=== PATIENT | female | born 1980 | race Caucasian/White ===

== ENCOUNTER 2023-06-10 17:19 | Emergency (ER) | payer OTHER, SELFPAY ==
--- NOTE | 2023-06-10 | ECG_ITS ---
Test Reason : CHEST PAIN Blood Pressure : / mmHG Vent. Rate : 080 BPM Atrial Rate : 080 BPM P-R Int : 164 ms QRS Dur : 074 ms QT Int : 386 ms P-R-T Axes : 051 007 047 degrees QTc Int : 445 ms Normal sinus rhythm Normal ECG When compared with ECG of 19-SEP-2019 16:17, No significant change was found Referred By: Generic ED Physician Electronically Signed By:JERI SCHULTZ MD
--- NOTE | ~2023-06-10 | CT_ITS ---
EXAMINATION: CT ANGIOGRAM OF THE CHEST WITH AND WITHOUT CONTRAST (CT PULMONARY ANGIOGRAM FOR PE) CLINICAL INFORMATION: Pain. COMPARISON: Chest x-ray from earlier the same day and chest CTA from 2013. TECHNIQUE: Prior to contrast administration, noncontrast localization images were obtained. Subsequently, multidetector volumetric imaging was performed from the thoracic inlet to below the diaphragms following the administration of 65 mL Omnipaque 350 intravenous contrast. No contrast reaction reported. Sagittal, coronal, and MIP oblique sagittal reformatted images were obtained on the CT workstation, uploaded to PACS, and reviewed. This CT examination was performed using dose optimization techniques as appropriate, variously including the following: *Automated exposure control. *Adjustment of mA and/or kV according to patient size (this includes techniques or standardized protocols for targeted exams where dose is matched to indication/reason for exam; i.e. extremities or head). *Use of iterative reconstruction technique. Total exam dose-length product 526 mGy-cm. FINDINGS: QUALITY OF STUDY/CONTRAST BOLUS: Satisfactory. PULMONARY ARTERIES: No pulmonary emboli. Prominent main pulmonary artery measuring 4 cm. Right and left pulmonary arteries do not appear enlarged. THORACIC AORTA: No aneurysm. Upper normal-size ascending thoracic aorta measuring 4 cm. Normal caliber aortic arch and descending thoracic aorta. No dissection. There is circumferential wall thickening of the distal aortic arch and proximal descending thoracic aorta questionable for vasculitis. LUNG: No focal consolidation, nodules or masses. PLEURA: No pleural effusion or pneumothorax. MEDIASTINUM: Normal heart size. No pericardial effusion. Shotty mediastinal lymphadenopathy. No enlarged hilar or mediastinal lymphadenopathy. No evidence of septal bowing or right heart strain. CORONARY ARTERY CALCIFICATION: None visualized on this study. CHEST WALL/AXILLA: No axillary or internal mammary lymphadenopathy. OSSEOUS STRUCTURES: No acute or suspicious osseous abnormality. UPPER ABDOMEN: Enlarged fatty liver. No reflux of contrast into the hepatic veins to suggest elevated right heart pressures. CT/CT angio chest PE protocol IMPRESSION: No evidence of pulmonary embolism. There is circumferential wall thickening of the distal aortic arch and proximal descending thoracic aorta. Findings are questionable for vasculitis. This is new from December 2013 exam. Shotty mediastinal lymphadenopathy. Upper normal-size ascending thoracic aorta. The aortic arch and descending thoracic aorta are normal in caliber. Slightly dilated main pulmonary artery. The right and left pulmonary arteries are normal in caliber. Is findings are similar to 2014 exam. VTE: Negative.
--- NOTE | ~2023-06-10 | XR_ITS ---
EXAMINATION: XR CHEST CLINICAL INFORMATION: Chest pain. COMPARISON: Most recent chest radiograph dated 09/19/2019. TECHNIQUE: 2 views of the chest were obtained. FINDINGS: The lungs are clear. The cardiomediastinal silhouette is normal in size. There is no pleural effusion or pneumothorax. No acute osseous abnormality. XR/XR chest 2V IMPRESSION: No acute cardiopulmonary findings.
--- NOTE | 2023-06-10 17:53 | PC.NURSE ---
Provider to bedside for primary eval.
[2023-06-10 17:54] VITALS: BP 128/62; BP 140/80; PULSE 93; PULSE 94; RESP 20; TEMP 36.8; O2SAT 98; O2SAT 99; BMI 51.2
--- NOTE | 2023-06-10 18:07 | ED_ITS ---
HPI - Chest Pain General Chief Complaint: Chest Pain Stated Complaint: 01/06 CHEST PAIN Time Seen by Provider: 06/10/23 17:47 Source: patient, RN notes reviewed and old records reviewed Mode of arrival: EMS Limitations: no limitations History of Present Illness HPI narrative: 42-year-old female presents for evaluation of chest pain. Patient reports that she had a sudden onset of midsternal chest pain about 45 minutes prior to arrival The pain radiates through straight to her back. She states the pain is worse if she pushes on her chest. She denies any numbness, tingling pain She endorses shortness of breath as well as nausea. She reports a history of GERD Denies any fevers, chills She endorses a history of anxiety Patient reports diarrhea starting 3 days ago Related Data Previous Rx's Medication Instructions Recorded tramadol 50 mg tablet 50 mg PO TID PRN severe pain 06/10/23 (scale score 7-10) #15 tabs Allergies Allergy/AdvReac Type Severity Reaction Status Date / Time latex [LATEX] Allergy Intermediate HIVES Unverified 12/15/19 14:52 fluoxetine [From PROZAC] Allergy Unknown UNK Unverified 12/15/19 14:52 Review of Systems 2 Constitutional: Constitutional: Denies body ache(s), Denies chills and Denies fever(s) Eyes: Eyes: Denies blurry vision ENT: Denies sore throat Cardiovascular: Cardiovascular: Reports chest pain, Reports chest pain at rest and Denies dyspnea Respiratory: Respiratory: Denies cough and Denies dyspnea Gastrointestinal: Gastrointestinal: Denies abdominal pain, Denies nausea and Denies vomiting Musculoskeletal: Musculoskeletal: Reports back pain Integumentary/Breasts: Skin/Breast: Denies rash PMFSH Past Medical History Medical History (Updated 06/10/23 @ 20:19 by Emily Hobbs) Panic disorder Anxiety Social History Social History Substance Use Type: Prescription Drugs Substance Use Frequency: Occasionally Any prior treatment program specific to substance use: No Advance Directives: No Advance Directives Information Provided: Yes Patient : No Physical Exam 2 Vital Signs: Vital Signs: Last Vital Signs Temp 98.6 F 06/10/23 19:43 Pulse 77 06/10/23 19:43 Resp 12 06/10/23 19:43 BP 130/48 L 06/10/23 19:43 Pulse Ox 98 06/10/23 19:43 O2 Del Method Room Air 06/10/23 19:43 BMI result Body Mass Index 51.2 Const: General: healthy appearing, comfortable, no acute distress, alert and awake Nutritional Appearance: well nourished Orientation/consciousness: p atient oriented x3 HEENT: Head: Yes normocephalic and Yes atraumatic Throat: Yes posterior oropharynx normal Eyes: Eyelids: Yes eyelids normal Conjunctivae: conjunctivae normal S clerae: sclerae normal Corneas: corneas normal Pupils: Equal, round and reactive pupils present EOM: EOMs intact bilaterally Chest: Other: Tender to palpation of the midsternal chest. No crepitus Resp: Effort & Inspection: normal respiratory effort, able to speak in complete sentences, no audible wheezes and not labored Auscultation: clear to auscultation bilaterally Cardio: Rate: regular rate Rhythm: regular rhythm GI: Inspection: No distended and Yes obesity Palpation (GI): Soft to palpation, not firm, nontender, no guarding and not rigid Skin: General skin exam: no rashes or lesions noted and elasticity normal Neuro: General: patient oriented x3 Cranial nerves: Yes Equal, round and reactive pupils present and Yes Bilaterally intact EOM present Cognition (Neuro): normal cognition Course Reevaluation(s) Reevaluation #1: CTA was ordered to rule out PE as the patient an elevated D-dimer. This was negative for PE study. Troponin negative x2. She does have some vasculitic changes to the aorta however no concerning abnormalities requiring admission. Discussed the patient will follow the PCP. Patient is requesting pain medication I initially recommended Toradol however she reports history of stomach issues, will treat with tramadol instead. Time: 22:11 Medications Administered Discontinued Medications Generic Name Dose Route Start Last Admin Trade Name Freq PRN Reason Stop Dose Admin Iohexol 65 ml 06/10/23 20:20 06/10/23 20:21 Iohexol 350 Mg/Ml 100 Ml Infus..Btl IV 06/10/23 20:21 65 ml ONCE ONE Administration Medical Decision Making Medical Decision Making MDM Narrative: 42-year-old female presents for evaluation chest pain. She has a history of GERD as well as severe anxiety. She endorses vaping but no history of COPD or asthma. Her pain is reproducible on exam. She was given aspirin a total of 324 mg prior to arrival as well as 1 nitro. These did not help her pain. Her EKG is normal sinus rhythm with a rate of [address] segment changes. No change when compared to September 19, 2019. Her initial troponin was undetectable, given that her symptoms started within 3 hours around we will draw a 3 hour troponin level for a delta. Her chest x-ray was clear, no evidence of infiltrate or pneumothorax. She has not tachycardic, tachypneic or hypoxic. She does state that her father has a ?clotting disorder that I have not been tested for. Will add on a D-dimer to rule out PE but she has no leg swelling either. Patient has a history of anemia and she is slightly anemic today with is microcytic. Apparently she has iron pills at home that she could be taking and was encouraged to do so. The patient is status post cholecystectomy, so biliary disease is less likely Differential Diagnosis Differential Diagnoses: The differential diagnosis associated with the presentation includes Chest pain Anxiety GERD Pancreatitis Pneumonia Bronchitis PE ACS Admission/Observation Consideration of admission/observation: Escalation of care including admission/observation considered Consider admission for sudden onset midsternal chest pain Lab Data MDM Lab Attestation statement: I reviewed the patient's lab results. See above, no leukocytosis, microcytic anemia. Normal platelet count. No electrolyte abnormalities 06/10/23 18:32 06/10/23 18:32 Labs: Lab Results 06/10/23 06/10/23 06/10/23 Range/Units 18:32 18:33 19:47 WBC 6.5 (4.8-10.8) X10*3/uL RBC 3.97 L (4.20-5.50) X10*6/uL Hgb 10.1 L (12.0-16.0) g/dl Hct 30.4 L (37.0-47.0) % MCV 76.6 L (80.0-98.0) fL MCH 25.4 L (27.0-33.0) pg MCHC 33.2 (31.0-35.0) g/dl RDW 15.0 (11.0-16.0) % Plt Count 210 (160-400) X10*3/uL MPV 8.1 L (9.4-12.3) fL Immature Gran % (Auto) 0.5 H (0.0-0.4) % Neut % (Auto) 80.4 H (45-73) % Lymph % (Auto) 9.6 L (20-40) % [place] % (Auto) 7.1 (2-11) % Eos % (Auto) 1.9 (0-4) % Baso % (Auto) 0.5 (0-2) % Lymph # (Auto) 0.6 L (1.2-4.9) X10*3/uL [place] # (Auto) 0.5 (0.1-1.2) X10*3/uL Eos # (Auto) 0.1 (0.0-0.4) X10*3/uL Baso # (Auto) 0.0 (0.0-0.2) X10*3/uL Abs Immat Gran (auto) 0.03 (0.00-0.03) X10*3/uL Absolute Neuts (auto) 5.2 (2.0-8.3) x10*3/uL Absolute Nucleated RBC 0.000 (0.0-0.012) X10*3/uL Nucleated RBC % (auto) 0.0 (0.0-0.2) /100WBC PT 12.9 (11.1-13.3) SEC INR 1.1 (0.9-1.1) D-Dimer High Sensitivty 389 NG/ML Sodium 139 (135-145) mmol/L Potassium 3.9 (3.3-5.1) mmol/L Chloride 106 (96-108) mmol/L Carbon Dioxide 27 (22-29) mmol/L Anion Gap 10 L (12-20) BUN 6 L (9-16) mg/dL Creatinine 0.68 (0.5-1.4) mg/dL Estim Creat Clear Calc 139.0 Estimated GFR > 60 Random Glucose 101 (60-115) mg/dL Calcium 8.6 (8.4-10.2) mg/dL Total Bilirubin 0.5 (0.0-1.0) mg/dL AST 20 (5-31) U/L ALT 17 (0-31) U/L Alkaline Phosphatase 82 (39-117) U/L Troponin I High Sens < 2.7 < 2.7 (<3.5-17.0) ng/L Total Protein 6.8 (6.5-8.0) g/dL Albumin 3.7 (3.5-5.0) g/dL Lipase 22 (8-78) U/L Influenza Type A (PCR) NEGATIVE (Negative) Influenza Type B (PCR) NEGATIVE (Negative) RSV RNA Qual (PCR) NEGATIVE (Negative) SARS-CoV-2 RNA (RT-PCR) NEGATIVE (Negative) Independent Interpretation I performed an independent interpretation of an: EKG (See above) and Plain X-Ray (No infiltrates or pneumothorax) Radiology Impression Discussion of test interpretation with radiology: I have reviewed the radiologist's reading. (No acute cardiopulmonary findings) Discharge Plan Discharge Clinical Impression: Chest pain Patient Disposition: Home, Self-Care Instructions: Chest Pain (ED) Additional Instructions: Your workup in the ER today was reassuring. This includes your blood work, EKG and your CT scan did not show any evidence of blood clots Take all your medications as prescribed Take tramadol for severe breakthrough pain This may make you sleepy, did not drink alcohol or drive after taking it Follow-up with your primary doctor, return for new or worsening symptoms Prescriptions: New tramadol 50 mg tablet 50 mg PO TID PRN (Reason: severe pain (scale score 7-10)) Qty: 15 0RF
[2023-06-10 18:37] LABS: MANUAL DIFF FLAG NO
[2023-06-10 18:38] LABS: Basophils Percent Auto 0.5 % (0-2); Eosinophils Absolute Auto 0.1 X10*3/uL (0.0-0.4); Eosinophils Percent Auto 1.9 % (0-4); Hematocrit 30.4 % (37.0-47.0); Hemoglobin 10.1 g/dl (12.0-16.0); Imm Gran Abs Auto 0.03 X10*3/uL (0.00-0.03); Imm Gran Pct Auto 0.5 % (0.0-0.4); Lymphocytes Absolute Auto 0.6 X10*3/uL (1.2-4.9); Lymphocytes Percent Auto 9.6 % (20-40); Mean Corpuscular HGB Conc 33.2 g/dl (31.0-35.0); Mean Corpuscular Hemoglobin 25.4 pg (27.0-33.0); Mean Corpuscular Volume 76.6 fL (80.0-98.0); Mean Platelet Volume 8.1 fL (9.4-12.3); Monocytes Absolute Auto 0.5 X10*3/uL (0.1-1.2); Monocytes Percent Auto 7.1 % (2-11); Neutrophils Absolute Auto 5.2 x10*3/uL (2.0-8.3); Neutrophils Percent Auto 80.4 % (45-73); Platelet Count 210 X10*3/uL (160-400); Red Blood Count 3.97 X10*6/uL (4.20-5.50); White Blood Count 6.5 X10*3/uL (4.8-10.8)
[2023-06-10 18:48] LABS: INTERNATIONAL NORM RATIO 1.1 (0.9-1.1); Prothrombin Time 12.9 SEC (11.1-13.3)
[2023-06-10 18:52] LABS: Alanine Aminotransferase 17 U/L (0-31); Albumin Level 3.7 g/dL (3.5-5.0); Alkaline Phosphatase 82 U/L (39-117); Anion Gap 10 (12-20); Aspartate Amino Transferase 20 U/L (5-31); Bilirubin Total 0.5 mg/dL (0.0-1.0); Blood Urea Nitrogen 6 mg/dL (9-16); Calcium 8.6 mg/dL (8.4-10.2); Carbon Dioxide 27 mmol/L (22-29); Chloride 106 mmol/L (96-108); Estimated Glomerular Filt Rate > 60; Glucose Random 101 mg/dL (60-115); Lipase 22 U/L (8-78); Potassium 3.9 mmol/L (3.3-5.1); Sodium 139 mmol/L (135-145); Total Protein 6.8 g/dL (6.5-8.0)
--- NOTE | 2023-06-10 18:57 | MHC.CM.ED ---
HCP reviewed, signed and completed. Copies given. Uploaded into [facility] and [facility] [place] [facility]. HCP Phani Marin ([phone]).
[2023-06-10 19:00] LABS: Troponin-I High Sensitivity < 2.7 ng/L (<3.5-17.0)
[2023-06-10 19:15] LABS: Influenza A PCR NEGATIVE (Negative); Influenza B PCR NEGATIVE (Negative); Resp Syncy Virus RNA Qual PCR NEGATIVE (Negative); SARS COV2 PCR INHOUSE NEGATIVE (Negative)
[2023-06-10 19:43] VITALS: BP 130/48; PULSE 77; RESP 12; TEMP 37; O2SAT 98
[2023-06-10 19:47] LABS: D Dimer High Sensitivity 389 NG/ML
--- NOTE | 2023-06-10 20:15 | PC.NURSE ---
Pt off floor for imaging.
[2023-06-10 20:21] LABS: Troponin-I High Sensitivity < 2.7 ng/L (<3.5-17.0)
[2023-06-10] MEDS: iohexoL 350 MG/ML 100 ML INFUS..BTL 65 ML IV (20:21)
--- NOTE | 2023-06-10 22:08 | PC.NURSE ---
Provider to bedside for reeval.
[2023-06-10] MEDS: traMADoL HCL 50 MG TABLET PO (22:22)
== END 2023-06-10 22:25 | disposition home or self-care (01) ==
PROVIDERS: Physician Assistant; Emergency Provider Emergency Medicine; PCP Internal Medicine
DX: R07.89 Other chest pain (principal); M54.50 Low back pain, unspecified; R11.2 Nausea with vomiting, unspecified; F41.9 Anxiety disorder, unspecified; Z11.52 Encounter for screening for COVID-19; Z20.822 Contact with and (suspected) exposure to COVID-19; Z79.899 Other long term (current) drug therapy
CPT/HCPCS: 0241U; 36415; 71046; 71275; 80053; 83690; 84484; 85025; 85379; 85610; 93005; 99284; 99285; Q9967

== ENCOUNTER → 2023-06-10 19:02 | Outpatient (BNV) | payer OTHER, SELFPAY | PROVIDERS: Emergency Provider Emergency Medicine; PCP Internal Medicine; Visit Provider Internal Medicine Cardiovascular Disease | DX: R07.9 Chest pain, unspecified (principal) | CPT/HCPCS: 93010 ==

== ENCOUNTER 2023-12-11 14:11 | Outpatient (REF) | payer OTHER, SELFPAY ==
--- NOTE | ~2023-12-11 | CT_ITS ---
EXAMINATION: CT CERVICAL SPINE WITHOUT CONTRAST CLINICAL INFORMATION: Cervical myelopathy COMPARISON: None available. TECHNIQUE: Multidetector CT acquisitions of the cervical spine without administration of intravenous contrast. This CT examination was performed using dose optimization techniques as appropriate, variously including the following: *Automated exposure control *Adjustment of mA and/or kV according to patient size (this includes techniques or standardized protocols for targeted exams where dose is matched to indication/reason for exam; i.e. extremities or head) *Use of iterative reconstruction technique DLP: 470 mGy-cm FINDINGS: Reversal of the normal cervical lordosis. Normal alignment. No acute compression fracture. The vertebral body heights are preserved. There is mild disc height loss at C4-5. Please note that evaluation is limited in the absence of intrathecal contrast. Within these limitations, C2-3: No significant spinal canal or neural foraminal narrowing. C3-4: Bilateral uncovertebral hypertrophy. Moderate left and mild right neural foraminal narrowing. No significant spinal canal stenosis. C4-5: Disc osteophyte complex and bilateral uncovertebral hypertrophy. Mild to moderate spinal canal stenosis. Severe bilateral neural foraminal narrowing. C5-6: Disc osteophyte complex and bilateral uncovertebral hypertrophy. Mild to moderate spinal canal stenosis. Moderate left neural foraminal narrowing. C6-7: Disc osteophyte complex and bilateral uncovertebral hypertrophy. No significant spinal canal stenosis. Mild right greater than left neural foraminal narrowing. C7-T1: Disc osteophyte complex and bilateral uncovertebral hypertrophy. No significant spinal canal stenosis. Moderate left neural foraminal narrowing. The paravertebral soft tissues are unremarkable. CT/CT cervical spine wo IV con IMPRESSION: -Multilevel cervical spondylosis, most notable at C4-5 and C5-6 where there is mild to moderate spinal canal stenosis. -Varying degrees of neural foraminal narrowing throughout the cervical spine. Most notably, there is severe bilateral neural foraminal narrowing at C4-5. Electronically signed by: Leah Mata MD 01/12/2024 04:46 PM EDT
== END 2023-12-11 14:12 | disposition home or self-care (01) ==
LOC: HO.CT 14:11
PROVIDERS: PCP Internal Medicine; Visit Provider Internal Medicine
DX: G95.9 Disease of spinal cord, unspecified (principal)
CPT/HCPCS: 72125

== ENCOUNTER 2024-06-02 17:01 | Emergency (ER) | payer OTHER, SELFPAY ==
--- NOTE | ~2024-06-02 | CT_ITS ---
CLINICAL HISTORY: diffuse abd pain CT abdomen and pelvis with contrast Comparison: CT of the abdomen and pelvis from 06/02/2016 Findings: Mild bibasilar atelectasis. Redemonstration of the steatotic change of the liver. The adrenal glands are normal. Splenomegaly with spleen measuring 15 cm long axis. Mild volume loss of the pancreas. The gallbladder is surgically absent. Multiple mesenteric and periaortic lymph nodes are nonspecific and may be reactive. Majority of the mesenteric lymph nodes are right-sided adjacent to dilated loops of small bowel measuring up to 3 cm diameter concerning for small bowel obstruction. Marked wall thickening of the small intestine is nonspecific with multifocal interloop edema and additional mesenteric fluid. No free intraperitoneal air. Calcifications in the cecum approaches the base of the nondilated appendix or appendiceal stump. No acute appendicitis. Fluid in the large intestine as can be seen with colitis and diarrhea type illnesses. Uterus is anteverted with intrauterine device in place. No adnexal soft tissue mass. Mild wall thickening of the urinary bladder is nonspecific. Mild free fluid in the abdomen pelvis is likely reactive. Index cystic structure of the right ovary measures 3 point [address] with right ovary mildly enlarged 5 cm. Left adnexa is unremarkable for CT. No definite drainable abscess by CT. No acute osseous abnormality. Degenerative changes include multifocal facet arthropathy. Mild osteoarthritis hips. Additional degenerative changes include pubic symphysis and SI joints. IMPRESSION: Mild small bowel dilatation concerning for small bowel obstruction in the right hemiabdomen, with marked wall thickening of the small intestine, interloop edema, and fluid in the mesentery. This document has been electronically signed by: Uday David MD on 06/03/2024 01:45:49
[2024-06-02 17:24] VITALS: BP 145/67; PULSE 89; RESP 22; TEMP 37.1; O2SAT 98; BMI 45.1
--- NOTE | 2024-06-02 17:26 | ED_ITS ---
HPI - General Adult General Chief complaint: Abdominal Pain Stated complaint: abd pain n/v Time Seen by Provider: 06/02/24 22:14 Source: patient Mode of arrival: ambulatory Limitations: no limitations History of Present Illness ED Provider: Dr. Nicole Montero HPI narrative: Patient comes to the emergency room complaining of diffuse abdominal pain for 1 week. Patient states that she has been having constipation intermittently aunt putting like bowel movements. Patient states that earlier this morning she had several episodes of nausea and vomiting. No diarrhea. No blood in the stool. Denies fever chills. Denies UTI or flank pain. Related Data Home Medications ?Medication ?Instructions ?Recorded ?Confirmed atorvastatin 40 mg tablet 40 mg PO ONCE 06/03/24 cholestyramine (with sugar) 4 gram 1 ea PO DAILY 06/03/24 powder for susp in a packet dicyclomine 10 mg capsule 10 mg PO TID 06/03/24 dicyclomine 10 mg capsule 10 mg PO TID 06/03/24 ezetimibe 10 mg tablet 10 mg PO DAILY 06/03/24 ferrous sulfate 325 mg (65 mg 325 mg PO DAILY 06/03/24 iron) tablet folic acid 1 mg tablet 1 mg PO DAILY 06/03/24 ketoconazole 2 % topical cream 1 appl topical BID 06/03/24 lisinopril 10 mg tablet 10 mg PO DAILY 06/03/24 meclizine 25 mg tablet 25 mg PO TID 06/03/24 ondansetron HCl 4 mg tablet 4 mg PO Q8H PRN nausea 06/03/24 pantoprazole 40 mg tablet,delayed 40 mg PO DAILY 06/03/24 release sertraline 100 mg tablet 100 mg PO DAILY 06/03/24 sertraline 25 mg tablet 25 mg PO DAILY 06/03/24 Allergies Allergy/AdvReac Type Severity Reaction Status Date / Time latex [LATEX] Allergy Intermediate HIVES Unverified 06/02/24 17:30 fluoxetine [From PROZAC] Allergy Unknown UNK Unverified 06/02/24 17:30 Review of Systems 2 Review of Systems: Constitutional : No Weight loss, No Fever, No Chills, No Night Sweats, No Fatigue, No Malaise ENT/Mouth : No Hearing loss, No Ear Pain, No Nasal Congestion, No Sinus Pain, No Hoarseness, No sore throat, No Rhinorrhea, No Swallowing Difficulty Eyes: No Eye Pain, No Swelling, No Redness, No Foreign Body, No Discharge, No Vision Changes Cardiovascular : No Chest Pain, No SOB, No Dyspnea on Exertion, No Orthopnea, No Edema, No Palpitations Respiratory : No Cough, No Sputum, No Wheezing, No Smoke Exposure, No Dyspnea Gastrointestinal : Complaining of nausea vomiting, no diarrhea, complaining of constipation and intermittent soft and constipation bowel movements Genitourinary : no irregular bleeding, No Dysuria, No Urinary Frequency, No Hematuria, No Urinary Incontinence, No Urgency, No Flank Pain, No Urinary Flow Changes, No Hesitancy Musculoskeletal : No joint pain, No Myalgias, No Joint Swelling Skin : No Skin Lesions, No rash Neuro : No Weakness, No Numbness, No Paresthesias, No Loss of Consciousness, No Dizziness, No Headache Psych : No Anxiety/Panic, No Depression, No SI/HI/AH/VH, No Social Issues, Heme/Lymph: No Bruising, No Bleeding,No Lymphadenopathy Endocrine : No Polyuria, No Polydipsia, No Temperature Intolerance [facility] Past Medical History Medical History Panic disorder Anxiety Social History Social History Smoked in Last 30 Days: No Use of substances other than those prescribed or required for medical reasons: No Substance Use Type: Prescription Drugs Advance Directives: No Advance Directives Information Provided: No Physical Exam ED Vital Signs: Vital Signs - 24 hr 06/02/24 17:24 06/02/24 23:56 06/03/24 04:00 Temperature 98.7 F 98.9 F 98.1 F Pulse Rate 89 91 87 Respiratory Rate 22 H 18 16 Blood Pressure 145/67 H 136/68 125/57 L Pulse Oximetry 98 98 97 Oxygen Delivery Method Room Air Room Air Room Air BMI result Body Mass Index 45.1 Const Other: Appearance: Alert. Oriented X3. No acute distress. Eyes: Pupils equal, round and reactive to light. ENT: Pharynx normal. Neck: Normal inspection. Neck supple. No lymph nodes noted. No crepitus CVS: Normal heart rate and rhythm. Pulses normal. Normal S1 and S2 Respiratory: No respiratory distress. Breath sounds normal. No Wheezing. No rales Abdomen: Soft , diffuse tenderness to palpation, most notoriously on the periumbilical area No rigidity. No distention. Skin: Skin warm and dry. Normal skin color. Normal skin turgor. Extremities: No lower extremity edema. No Lacerations. No Rash Neuro: Oriented X 3. No motor deficit. No sensory deficit. Moving all extremities. No slurred speech. CN 2 through 12 grossly intact Psych: calm, cooperative, anxious Course Course Course Narrative: This is an RME: Additional HPI, ROS, PE not included below will be deferred to primary provider. RME assessment and note performed by: Margaret Ivory PA-C This is a 43-year-old female, 3 ruptured cervical discs, HTN, anxiety, anemia, who presents emergency department with complaints of abdominal pain x1 week. Starts in the center of her abdomen and radiates to her back. She has been taking half a bottle of Pepto-Bismol per day as well as many Tums. History of cholecystectomy. Last bowel movement was on hour ago> loose stool. Reports last bowel movement was 1.5 weeks ago. Plan: Labs, EKG, UA, further ER evaluation needed Medications Administered Discontinued Medications Generic Name Dose Route Start Last Admin Trade Name Dionne PRN Reason Stop Dose Admin Iohexol 85 ml 06/02/24 23:54 06/02/24 23:54 Iohexol 350 Mg/Ml 100 Ml Infus..Btl IV 06/02/24 23:55 85 ml ONCE ONE Administration Morphine Sulfate 2 mg 06/02/24 23:09 06/03/24 00:01 Morphine Sulfate 2 Mg/Ml Cartridge IVPUSH 06/02/24 23:10 2 mg ONCE ONE Administration Protocol Morphine Sulfate 4 mg 06/03/24 02:49 06/03/24 03:06 Morphine Sulfate 4 Mg/Ml Cartridge IVPUSH 06/03/24 02:50 4 mg ONCE ONE Administration Protocol Ondansetron HCl 4 mg 06/02/24 23:06 06/03/24 00:00 Ondansetron Hcl 4 Mg/2 Ml Vial IVPUSH 06/02/24 23:07 4 mg ONCE ONE Administration Prochlorperazine Edisylate 10 mg 06/03/24 02:49 06/03/24 03:06 Prochlorperazine Edisylate 10 Mg/2 Ml Vial IVPUSH 06/03/24 02:50 10 mg ONCE ONE Administration Medical Decision Making Medical Decision Making [facility] Narrative: My interpretation of EKG: Normal sinus rhythm, heart rate 83, no ST segment depression or elevation, no T-wave inversion, QTC 458 Patient receiving IV fluids, Zofran and morphine My interpretation of labs: No obvious abnormality in patient's hematology and chemistry, troponin negative, hCG negative, urinalysis negative On a palpation patient had tenderness in the periumbilical area. We will get a CT scan. Patient was medicated with a total of 6 mg of morphine, prochlorperazine, ondansetron Patient is NPO CT scan consistent with a small-bowel obstruction Patient needs admission. However, patient has history of coronary artery disease. Patient states that she had a cardiac catheterization done a few weeks ago. The plan was initially to put cardiac stents. However, due to the severe blockage, patient was told that she needs a CABG. Patient's die finisher forging and vascular surgeon were planning to refer the patient to [facility]. Her surgeon Dr. Romero evaluated the patient. Given the patient's cardiac risk in case that she would need surgery, recommends that we transfer the patient to a tertiary care hospital. I discussed the above-mentioned with the patient and her daughter, they agree with the plan. We discussed the patient with [facility], [facility]. Given the above- mentioned information, patient is not a candidate to be transferred to their hospital and also they are close for transfers. Patient was accepted at [facility], ED to ED, accepting physician Dr. Manriquez. At this time, patient does not have any chest pain at all. Abdominal pain is improving. I discussed with the patient that at this time, it does not mean that she will get surgery, either abdominal or cardiovascular. However, due to the complexity of the patient's medical problems, it would be best to have the patient be at a tertiary care hospital, patient was accepted at [facility]. Patient and daughter agreeable to transfer. A CD was burn with patient's CT scan images, which will be traveling with the patient. Differential Diagnosis Differential Diagnoses: The differential diagnosis associated with the presentation includes (IBS, constipation, SBO, functional abdominal pain, anxiety) Admission/Observation Consideration of admission/observation: Escalation of care including admission/observation considered Consult Healthcare Provider Management of the patient was discussed with: Hospitalist (I discussed the patient with Dr. Islas) and Nuisance Animal Damage Control Agent (Dr. Romero from general surgery) Lab Data MDM Lab Attestation statement: I reviewed the patient's lab results. 06/02/24 17:58 06/02/24 17:58 Labs: Lab Results 06/02/24 06/02/24 06/03/24 Range/Units 17:58 19:22 07:26 WBC 5.7 (4.8-10.8) X10*3/uL RBC 4.20 (4.20-5.50) X10*6/uL Hgb 11.1 L (12.0-16.0) g/dl Hct 32.9 L (37.0-47.0) % MCV 78.3 L (80.0-98.0) fL MCH 26.4 L (27.0-33.0) pg MCHC 33.7 (31.0-35.0) g/dl RDW 14.6 (11.0-16.0) % Plt Count 252 (160-400) X10*3/uL MPV 8.6 L (9.4-12.3) fL Immature Gran % (Auto) 0.2 (0.0-0.4) % Neut % (Auto) 81.1 H (45-73) % Lymph % (Auto) 9.5 L (20-40) % [place] % (Auto) 5.8 (2-11) % Eos % (Auto) 3.0 (0-4) % Baso % (Auto) 0.4 (0-2) % Lymph # (Auto) 0.5 L (1.2-4.9) X10*3/uL [place] # (Auto) 0.3 (0.1-1.2) X10*3/uL Eos # (Auto) 0.2 (0.0-0.4) X10*3/uL Baso # (Auto) 0.0 (0.0-0.2) X10*3/uL Abs Immat Gran (auto) 0.01 (0.00-0.03) X10*3/uL Absolute Neuts (auto) 4.6 (2.0-8.3) x10*3/uL Absolute Nucleated RBC 0.000 (0.0-0.012) X10*3/uL Nucleated RBC % (auto) 0.0 (0.0-0.2) /100WBC Sodium 139 (135-145) mmol/L Potassium 3.9 (3.3-5.1) mmol/L Chloride 105 (96-108) mmol/L Carbon Dioxide 28 (22-29) mmol/L Anion Gap 10 L (12-20) BUN 7 L (9-16) mg/dL Creatinine 0.70 (0.5-1.4) mg/dL Estim Creat Clear Calc 133.0 Estimated GFR > 60 Random Glucose 98 (60-115) mg/dL Lactic Acid 0.6 (0.5-2.0) mmol/L Calcium 9.0 (8.4-10.2) mg/dL Magnesium 2.0 (1.6-2.6) mg/dL Total Bilirubin 0.5 (0.0-1.0) mg/dL Direct Bilirubin 0.2 (0.0-0.5) mg/dL AST 25 (5-31) U/L ALT 21 (0-31) U/L Alkaline Phosphatase 89 (39-117) U/L Troponin I High Sens < 2.7 (<3.5-17.0) ng/L Total Protein 7.6 (6.5-8.0) g/dL Albumin 4.1 (3.5-5.0) g/dL Lipase 23 (8-78) U/L Beta HCG, Quant < 2 mIU/mL Urine Color Dark Yellow Urine Appearance Clear Urine pH 6.0 (5.0-9.0) Ur Specific [place] 1.025 (1.005-1.025) Urine Protein Negative (Neg-Trace) mg/dL Urine Glucose (UA) Negative (Negative) mg/dL Urine Ketones Trace (Negative) mg/dL Urine Blood Negative (Negative) Urine Nitrite Negative (Negative) Ur Leukocyte Esterase Negative (Negative) Independent Interpretation I performed an independent interpretation of an: EKG and CT Scan Radiology Impression Discussion of test interpretation with radiology: I have reviewed the radiologist's reading. Radiologist Impression: Mild bibasilar atelectasis. Redemonstration of the steatotic change of the liver. The adrenal glands are normal. Splenomegaly with spleen measuring 15 cm long axis. Mild volume loss of the pancreas. The gallbladder is surgically absent. Multiple mesenteric and periaortic lymph nodes are nonspecific and may be reactive. Majority of the mesenteric lymph nodes are right-sided adjacent to dilated loops of small bowel measuring up to 3 cm diameter concerning for small bowel obstruction. Marked wall thickening of the small intestine is nonspecific with multifocal interloop edema and additional mesenteric fluid. No free intraperitoneal air. Calcifications in the cecum approaches the base of the nondilated appendix or appendiceal stump. No acute appendicitis. Fluid in the large intestine as can be seen with colitis and diarrhea type illnesses. Uterus is anteverted with intrauterine device in place. No adnexal soft tissue mass. Mild wall thickening of the urinary bladder is nonspecific. Mild free fluid in the abdomen pelvis is likely reactive. Index cystic structure of the right ovary measures 3 point [address] with right ovary mildly enlarged 5 cm. Left adnexa is unremarkable for CT. No definite drainable abscess by CT. No acute osseous abnormality. Degenerative changes include multifocal facet arthropathy. Mild osteoarthritis hips. Additional degenerative changes include pubic symphysis and SI joints. IMPRESSION: Mild small bowel dilatation concerning for small bowel obstruction in the right hemiabdomen, with marked wall thickening of the small intestine, interloop edema, and fluid in the mesentery. Critical Care Time Critical Care Time Critical Care Time: Yes Total Critical Care Time: 60 Attestation: I have personally provided critical care time. Time includes review of lab data, radiology results, discussion with consultants, and monitoring for potential decompensation. Intervention performed as documented. Discharge Plan Discharge Clinical Impression: Abdominal pain, Small bowel obstruction Patient Disposition: General Acute Hospital Transfer Details: [facility], ED to ED, Dr. Manriquez Prescriptions: No Action atorvastatin 40 mg tablet 40 mg PO ONCE ondansetron HCl 4 mg tablet 4 mg PO Q8H PRN (Reason: nausea) sertraline 100 mg tablet 100 mg PO DAILY meclizine 25 mg tablet 25 mg PO TID pantoprazole 40 mg tablet,delayed release (DR/EC) 40 mg PO DAILY ferrous sulfate 325 mg (65 mg iron) tablet 325 mg PO DAILY lisinopril 10 mg tablet 10 mg PO DAILY sertraline 25 mg tablet 25 mg PO DAILY folic acid 1 mg tablet 1 mg PO DAILY ketoconazole 2 % cream 1 appl topical BID dicyclomine 10 mg capsule 10 mg PO TID dicyclomine 10 mg capsule 10 mg PO TID ezetimibe 10 mg tablet 10 mg PO DAILY cholestyramine (with sugar) 4 gram powder in packet 1 ea PO DAILY Print Language: Indonesian
--- NOTE | 2024-06-02 17:27 | ECG_ITS ---
Test Reason : ABD PAIN Blood Pressure : */* mmHG Vent. Rate : 83 BPM Atrial Rate : 83 BPM P-R Int : 154 ms QRS Dur : 82 ms QT Int : 390 ms P-R-T Axes : 20 -11 35 degrees QTcB Int : 458 ms Normal sinus rhythm Minimal voltage criteria for LVH, may be normal variant ( R in aVL ) Nonspecific ST abnormality Abnormal ECG No previous ECGs available Referred By: Margaret Ivory Electronically Signed By: JERI SCHULTZ MD
[2024-06-02 18:14] LABS: MANUAL DIFF FLAG NO
[2024-06-02 18:21] LABS: Basophils Percent Auto 0.4 % (0-2); Eosinophils Absolute Auto 0.2 X10*3/uL (0.0-0.4); Hematocrit 32.9 % (37.0-47.0); Hemoglobin 11.1 g/dl (12.0-16.0); Imm Gran Abs Auto 0.01 X10*3/uL (0.00-0.03); Imm Gran Pct Auto 0.2 % (0.0-0.4); Lymphocytes Absolute Auto 0.5 X10*3/uL (1.2-4.9); Lymphocytes Percent Auto 9.5 % (20-40); Mean Corpuscular HGB Conc 33.7 g/dl (31.0-35.0); Mean Corpuscular Hemoglobin 26.4 pg (27.0-33.0); Mean Corpuscular Volume 78.3 fL (80.0-98.0); Mean Platelet Volume 8.6 fL (9.4-12.3); Monocytes Absolute Auto 0.3 X10*3/uL (0.1-1.2); Monocytes Percent Auto 5.8 % (2-11); Neutrophils Absolute Auto 4.6 x10*3/uL (2.0-8.3); Neutrophils Percent Auto 81.1 % (45-73); Platelet Count 252 X10*3/uL (160-400); Red Cell Distribution Width 14.6 % (11.0-16.0); White Blood Count 5.7 X10*3/uL (4.8-10.8)
[2024-06-02 18:32] LABS: Alanine Aminotransferase 21 U/L (0-31); Albumin Level 4.1 g/dL (3.5-5.0); Alkaline Phosphatase 89 U/L (39-117); Anion Gap 10 (12-20); Aspartate Amino Transferase 25 U/L (5-31); Bilirubin Direct 0.2 mg/dL (0.0-0.5); Bilirubin Total 0.5 mg/dL (0.0-1.0); Blood Urea Nitrogen 7 mg/dL (9-16); Carbon Dioxide 28 mmol/L (22-29); Chloride 105 mmol/L (96-108); Estimated Glomerular Filt Rate > 60; Glucose Random 98 mg/dL (60-115); Lipase 23 U/L (8-78); Potassium 3.9 mmol/L (3.3-5.1); Sodium 139 mmol/L (135-145); Total Protein 7.6 g/dL (6.5-8.0)
[2024-06-02 18:41] LABS: HCG Quantitative < 2 mIU/mL; Troponin-I High Sensitivity < 2.7 ng/L (<3.5-17.0)
[2024-06-02 19:29] LABS: Appearance Urine Clear; Color Urine Dark Yellow; Glucose Urine UA Negative (Negative); Leukocyte Esterase Urine Negative (Negative); Nitrite Urine Negative (Negative); Specific Gravity - Urine 1.025 (1.005-1.025); Urine Blood Negative (Negative); Urine Ketones Trace mg/dL (Negative); Urine Protein Negative (Neg-Trace)
[2024-06-02] MEDS: iohexoL 350 MG/ML 100 ML INFUS..BTL 85 ML IV (23:54)
[2024-06-02 23:56] VITALS: BP 136/68; PULSE 91; RESP 18; TEMP 37.2; O2SAT 98
[2024-06-03] MEDS: ondansetron HCL 4 MG/2 ML VIAL IVPUSH
[2024-06-03] MEDS: Morphine Sulfate 2 MG/ML CARTRIDGE IVPUSH (00:01)
[2024-06-03] MEDS: Prochlorperazine Edisylate 10 MG/2 ML VIAL IVPUSH (03:06)
[2024-06-03] MEDS: Morphine Sulfate 4 MG/ML CARTRIDGE IVPUSH (03:06)
[2024-06-03 04:00] VITALS: BP 125/57; PULSE 87; RESP 16; TEMP 36.7; O2SAT 97
--- NOTE | 2024-06-03 07:40 | P.CONGS_ITS ---
History of Present Illness Consult details Consult date: 06/03/24 Requesting physician: Nicole Montero Narrative: 43-year-old female patient presenting with complaints of abdominal pain, nausea, vomiting, and changes in her bowel habits. This has been going on for several weeks without significant improvement. She has anorexia but denies fever or chills. She has been undergoing a workup as an outpatient and was determined to possibly have Crohn's disease. She was being evaluated by Gastroenterology at [facility] and was awaiting a upper endoscopy and colonoscopy. This workup was on hold since she developed chest pain. She initially underwent an attempted cardiac stent placement but apparently was unsuccessful and now she is awaiting CABG. She is awaiting evaluation by Cardiac surgery. She presents to the emergency department today with increased nausea and vomiting. Laboratories reveal normal WBC. CT abdomen and pelvis shows dilated loops of small bowel with some areas of thickening and surrounding inflammatory change which could be consistent with inflammatory bowel disease (Crohn's disease). There is no gastric dilatation. Review of Systems 2 Review of Systems: Yes all other systems are reviewed and are negative PMFSH Past Medical History Medical History Panic disorder Anxiety Social History Social History Smoked in Last 30 Days: No Use of substances other than those prescribed or required for medical reasons: No Substance Use Type: Prescription Drugs Advance Directives: No Advance Directives Information Provided: No Meds Allergies Allergy/AdvReac Type Severity Reaction Status Date / Time latex [LATEX] Allergy Intermediate HIVES Unverified 06/02/24 17:30 fluoxetine [From PROZAC] Allergy Unknown UNK Unverified 06/02/24 17:30 Physical Exam 2 Vital Signs: Vital Signs: Last Vital Signs Temp 98.1 F 06/03/24 04:00 Pulse 87 06/03/24 04:00 Resp 16 06/03/24 04:00 BP 125/57 L 06/03/24 04:00 Pulse Ox 97 06/03/24 04:00 O2 Del Method Room Air 06/03/24 04:00 BMI result Body Mass Index 45.1 Const: General: no acute distress and well developed Nutritional Appearance: well nourished Orientation/consciousness: patient oriented x3 Limitations: no limitations Resp: Effort & Inspection: normal respiratory effort, no audible wheezes, no cough and no respiratory distress GI: Inspection: Yes normal to inspection Palpation (GI): Soft to palpation, Tenderness to palpation present (GI) Carlin's sign negative, with no rebound tenderness and Rovsing's sign negative, no guarding and not rigid Skin: General skin exam: no rashes or lesions noted Neuro: General: patient oriented x3 Extrem: General: Yes no clubbing, cyanosis or edema Results Labs 06/02/24 17:58 06/02/24 17:58 Labs: Abnormal lab results 06/02/24 Range/Units 17:58 Hgb 11.1 L (12.0-16.0) g/dl Hct 32.9 L (37.0-47.0) % MCV 78.3 L (80.0-98.0) fL MCH 26.4 L (27.0-33.0) pg MPV 8.6 L (9.4-12.3) fL Neut % (Auto) 81.1 H (45-73) % Lymph % (Auto) 9.5 L (20-40) % Lymph # (Auto) 0.5 L (1.2-4.9) X10*3/uL Anion Gap 10 L (12-20) BUN 7 L (9-16) mg/dL Short CBC 06/02/24 Range/Units 17:58 WBC 5.7 (4.8-10.8) X10*3/uL Hgb 11.1 L (12.0-16.0) g/dl Hct 32.9 L (37.0-47.0) % Plt Count 252 (160-400) X10*3/uL BMP 06/02/24 17:58 Sodium 139 Potassium 3.9 Chloride 105 Carbon Dioxide 28 BUN 7 L Creatinine 0.70 Calcium 9.0 Liver Function 06/02/24 Range/Units 17:58 Total Bilirubin 0.5 (0.0-1.0) mg/dL Direct Bilirubin 0.2 (0.0-0.5) mg/dL AST 25 (5-31) U/L ALT 21 (0-31) U/L Alkaline Phosphatase 89 (39-117) U/L Albumin 4.1 (3.5-5.0) g/dL Urine 06/02/24 Range/Units 19:22 Urine Color Dark Yellow Urine Appearance Clear Urine pH 6.0 (5.0-9.0) Ur Specific [place] 1.025 (1.005-1.025) Urine Protein Negative (Neg-Trace) mg/dL Urine Glucose (UA) Negative (Negative) mg/dL All other labs normal. Assessment and Plan (1) Small bowel obstruction: Status: Acute (2) Abdominal pain: Status: Acute (3) Coronary artery disease: Status: Acute (4) Crohn's disease: Status: Acute Plan 43-year-old female patient presenting with complaints of abdominal pain, nausea and vomiting. Patient was previously suspected of having Crohn's disease and was currently undergoing a workup. Patient also reported chest pain and an attempted stent placement. She was told that she needs a CABG in his awaiting evaluation by Cardiac surgery. Patient does not appear to have a bowel obstruction and may actually have enteritis from Crohn's disease. I would recommend transfer to a tertiary care center for further management of her cardiac disease prior to any workup of her intestinal issues. Procedures Date of Service Date of Service: 06/03/24
[2024-06-03 07:55] LABS: Lactic Acid 0.6 mmol/L (0.5-2.0)
--- NOTE | 2024-06-03 09:11 | PHA.MEDREC ---
Pharmacy Consult ? Medication Reconciliation Pharmacy has completed the medication reconciliation. Spoke to patient and daughter at bedside who confirmed all medications. Stated she is no longer taking atorvastatin, cholestyramine, dicyclomine - because she was getting constipated, and ezetimibe. Said she is not currently using ketoconazole cream, uses meclizine and zofran PRN and takes baby aspirin, elderberry and pepto OTC. Last dose of medications was yesterday.
--- NOTE | 2024-06-03 10:27 | PC.NURSE ---
tried to call report [facility] [place] times [phone] could not get through.
[2024-06-03 10:57] VITALS: BP 130/69; PULSE 95; RESP 16; TEMP 36.7; O2SAT 98
== END 2024-06-03 09:45 | disposition short-term general hospital (02) ==
PROVIDERS: Physician Assistant Medical; Emergency Provider Emergency Medicine; PCP Internal Medicine
DX: K56.609 Unspecified intestinal obstruction, unspecified as to partial versus complete obstruction (principal); R10.9 Unspecified abdominal pain; R10.2 Pelvic and perineal pain; R11.2 Nausea with vomiting, unspecified; M54.50 Low back pain, unspecified; R94.31 Abnormal electrocardiogram [ECG] [EKG]; Z79.899 Other long term (current) drug therapy
CPT/HCPCS: 36415; 74177; 80048; 80076; 81003; 83605; 83690; 83735; 84484; 84702; 85025; 93005; 96374; 96375; 96376; 99285; J0737; J2270; J2405; Q9967

== ENCOUNTER → 2024-06-02 17:27 | Outpatient (BNV) | payer OTHER, SELFPAY | PROVIDERS: Emergency Provider Emergency Medicine; PCP Internal Medicine; Visit Provider Internal Medicine Cardiovascular Disease | DX: R94.31 Abnormal electrocardiogram [ECG] [EKG] (principal); R10.9 Unspecified abdominal pain | CPT/HCPCS: 93010 ==

== ENCOUNTER → 2024-06-02 22:17 | Outpatient (BNV) | payer OTHER, SELFPAY | PROVIDERS: Emergency Provider Emergency Medicine; PCP Internal Medicine; Visit Provider Surgery | DX: K56.609 Unspecified intestinal obstruction, unspecified as to partial versus complete obstruction (principal); R10.9 Unspecified abdominal pain; I25.10 Atherosclerotic heart disease of native coronary artery without angina pectoris; K50.90 Crohn's disease, unspecified, without complications | CPT/HCPCS: 99284 ==

== ENCOUNTER → 2024-06-02 23:06 | Outpatient (BNV) | payer OTHER, SELFPAY | PROVIDERS: Emergency Provider Emergency Medicine; PCP Internal Medicine; Visit Provider Radiology Neuroradiology | DX: R10.9 Unspecified abdominal pain (principal) | CPT/HCPCS: 74177 ==